=== PATIENT | female | born 1975 ===

== ENCOUNTER 2022-10-19 05:20 | Day surgery (SDC) | payer OTHER ==
[~2022-10-19] VITALS: Ht 167.6 cm; Wt 60.8 kg
[~2022-10-19 05:20] MED LIST: CLONAZEPAM2 M1 PO; LIPITOR20 MG PO; PROZAC20 MG PO; SEROQUEL50 MG PO; VIT C PO; VITAMIN E PO
[2022-10-19] MEDS ORDERED: DUI500 PO (08:35)
[2022-10-19] MEDS ORDERED: TRAM1TAB98 PO (08:35)
== END 2022-10-19 13:30 | disposition home or self-care (01) ==
LOC: CIR.AMB 05:20
PROVIDERS: ATTEND Orthopaedic Surgery Sports Medicine
DX: S83.241A Other tear of medial meniscus, current injury, right knee, initial encounter (principal); M22.41 Chondromalacia patellae, right knee; Z20.822 Contact with and (suspected) exposure to COVID-19; I10 Essential (primary) hypertension